=== PATIENT | male | born 1975 | race Caucasian/White ===

== ENCOUNTER 2020-02-09 09:46 | Emergency (ER) | payer MEDICAID, SELFPAY ==
[2020-02-09 09:57] VITALS: BP 122/73; PULSE 89; RESP 18; TEMP 36.3; O2SAT 100; BMI 22.1
[2020-02-09 10:01] VITALS: BP 116/74; PULSE 80; RESP 16; O2SAT 99
--- NOTE | 2020-02-09 10:13 | PC.NURSE ---
Pt stoma is red and moist, no drainage noted upon cleaning. Pt has some redness to the right lateral abdomen from adhesive from previous wafer. Pt skin cleansed with soap and water per pt preference. Pt declined skin prep prior to wafer application. 45mm ostomy kit used on pt. Pt tolerated well.
--- NOTE | 2020-02-09 10:26 | PC.NURSE ---
Pt sent with second 45mm ostomy kit d/t no supplies at the skilled nursing. Pt also sent with a tube of ostomy paste.
[2020-02-09 10:43] VITALS: BP 104/76; PULSE 70; RESP 15
--- NOTE | 2020-02-09 17:47 | W.ED.GENADLT ---
HPI - General Adult General: Chief complaint: General Medical Stated complaint: Needs colostomy bag Time Seen by Provider: 02/09/20 10:09 History of Present Illness: HPI narrative: 44-year-old male who is incarcerated in [facility]. He is originally from [place] is a history of ulcerative colitis and has a colostomy. He had a refill on his colostomy care supplies but they are in [place] and he does not have access to them he is needing a refill of medications he had a little irritation around the skin of the stoma from leakage but otherwise has been doing well been using the same colostomy bag for several days. Onset (ago): day(s) Location: abdomen Relieving factors: none Exacerbating factors: none Associated symptoms: Deny chest pain, confusion, cough, diaphoresis, decreased appetite, dyspnea, fevers/chills, headache(s), malaise, nausea, rash, palpitations, seizures, short of breath, syncope, vomiting or weakness Treatments prior to arrival: none Review of Systems Const: Denies: malaise or diaphoresis ENMT: Denies: throat pain, ear or mastoid pain, nasal discharge or nasal congestion Card: Denies: chest pain, palpitations or syncope Resp: Denies: dyspnea GI: Denies: nausea or vomiting : Denies: flank pain, dysuria, urinary frequency or urinary urgency Skin/Breast: Denies: rash Neuro: Denies: headache(s) or confusion Physical Exam Const: COMMON NORMALS: no acute distress GENERAL APPEARANCE: cooperative and comfortable ORIENTATION/CONSCIOUSNESS: Yes awake, Yes oriented to person, Yes oriented to place and Yes oriented to time HENMT: COMMON NORMALS: normocephalic, atraumatic and hearing grossly normal bilaterally HEAD & SCALP: normocephalic and atraumatic Resp: COMMON NORMALS: normal respiratory effort, No retractions, No use of accessory muscles and clear to auscultation bilaterally AUSCULTATION: clear to auscultation bilaterally Cardio: COMMON NORMALS: regular rate, regular rhythm and No murmurs present (Cardio) RATE: regular rate RHYTHM: regular rhythm GI: COMMON NORMALS: Soft to palpation and No hepatosplenomegaly present AUSCULTATION: Yes normoactive bowel sounds PALPATION: Yes Soft to palpation, No Tenderness to palpation present (GI), No Guarding due to palpation present (GI) and Yes No hepatosplenomegaly present Extremity: COMMON NORMALS: normal to inspection, capillary refill normal, no clubbing, cyanosis or edema, no calf tenderness and no pedal edema Neuro: SENSORIUM/ORIENTATION: Yes oriented to person, Yes oriented to place and Yes oriented to time Skin: COMMON NORMALS: no rashes or lesions noted GENERAL SKIN EXAM: no rashes or lesions noted Course Vital Signs: Vital signs: Vital Signs Temperature 97.3 F L 02/09/20 09:57 Pulse Rate 70 02/09/20 10:43 Respiratory Rate 15 02/09/20 10:43 Blood Pressure 104/76 02/09/20 10:43 Pulse Oximetry 99 02/09/20 10:01 MDM - General Adult MDM Narrative: Medical decision making narrative: Prescription given for colostomy supplies that he usually uses encouraged him to have [facility] [place] to colostomy supplies he got previously to him down here. Discharge Plan Discharge Patient Disposition: Home Clinical Impression: Colostomy care, Ulcerative colitis Condition: Stable Discharge Orders: Discharge Order (Routine); Ordered 02/09/20 Ordered By: Agustin Craft Discharge Date/Time: 02/09/20 10:44 Coding Level of Care Code ED Poultry Scalder for Edna Busby
== END 2020-02-09 10:44 | disposition home or self-care (01) ==
PROVIDERS: Emergency Provider Family Medicine
DX: Z43.3 Encounter for attention to colostomy (principal); K51.90 Ulcerative colitis, unspecified, without complications
CPT/HCPCS: 12345; 99282

== ENCOUNTER 2020-03-15 14:11 | Emergency (ER) | payer MEDICAID, SELFPAY ==
[2020-03-15 14:15] VITALS: BP 126/66; PULSE 129; RESP 18; TEMP 36.4; O2SAT 96; BMI 23.6
--- NOTE | 2020-03-15 14:40 | CT_ITS ---
WS: [id number] CT ABDOMEN AND PELVIS WITH CONTRAST HISTORY: Abdominal pain. TECHNIQUE: Imaging performed of the abdomen and pelvis with IV contrast. Single phase imaging of the abdomen. Coronal and sagittal reformats are submitted. All CT scans at [facility] use at least one of these dose optimization techniques: automated exposure control; mA and/or kV adjustment per patient size (includes targeted exams where dose is matched to clinical indication); or iterativ e reconstruction. IV CONTRAST: Omnipaque 300; 95 mL IV. Oral contrast: No DLP: 318.93 mGy.cm COMPARISON: None available. Lower thorax: Minimal dependent changes at the RIGHT lung base. Heart is normal size. Small hiatal he rnia. Liver/biliary system: Normal size with no intrahepatic dilatation. Gallbladder: Normal. No gallstones or wall thickening. No pericholecystic fluid. Pancreas: Normal. Spleen: Normal. Adrenal glands: Normal. Right kidney: RIGHT kidney is anteriorly rotated. No renal obstruction. Left kidney: Normal. Aorta: Normal. Lymphadenopathy: None. Free fluid: None. GI tract: Status post partial colectomy. There is fluid distending the rectum. No adjacent inflammati on. No GI tract obstruction. There is a RIGHT lower quadrant ostomy site. No obstruction or small bow el wall thickening. Abdominal wall: Unremarkable abdominal wall. No hernia. Pelvis: Normal. Bones: Unremarkable. CT/CT abdomen pelvis w con* [id number] IMPRESSION: 1. RIGHT lower quadrant ostomy site with no obstruction. No significant wall t hickening and no ascites. 2. Partial colectomy. 3. Anteriorly rotated RIGHT kidney.
--- NOTE | 2020-03-15 14:40 | XR_ITS ---
WS: [id number] PORTABLE CHEST HISTORY: dyspnea/cough COMPARISON: None available. Lungs are clear and well expanded. No pleural effusion or pneumothorax. Cardiac size: Normal. Mediastinum/Aorta: Normal mediastinum. No osseous abnormality seen. XR/XR chest 1V portable [id number] IMPRESSION: Unremarkable portable chest.
--- NOTE | 2020-03-15 14:41 | W.ED.ABDPA2 ---
HPI - Abdominal Pain General: Chief Complaint: Abdominal Pain Stated Complaint: COLITIS FLARE/HAS COLOSTOMY BAG Time Seen by Provider: 03/15/20 14:23 History of Present Illness: HPI narrative: 44-year-old male comes coming abdominal pain began after he ate earlier to today. Patient is incarcerated local [facility] he had eaten and sat down on his bunk began to get abdominal pain and discomfort He sat down in his bunk and tried to rest it got progressively worse she has reporting significant rectal pain and fullness he is not had any rectal bleeding or drainage has not noticed any blood in the colostomy pouch. His last surgery was in 2018. He denies any vomiting or fever. He has not had any dysuria urgency or frequency denies chest pain.day. MD elicited complaint: abdominal pain Pertinent past history: other (Ulcerative colitis) Onset (ago): hour(s) Location: Diffuse Severity: severe Quality: cramping Exacerbating factors: eating Relieving factors: rest Associated Symptoms: Reports bloating, GI cramping, nausea and poor appetite; Denies change in stool character, chills, coffee ground emesis, constipation, diarrhea, dyspepsia, dysuria, excessive flatus, fever(s), heartburn, hematochezia, hematuria, hematemesis, fecal incontinence, loose stools, melena, syncope and vomiting Review of Systems Const: Denies: fever(s) or chills ENMT: Denies: throat pain, ear or mastoid pain, nasal discharge or nasal congestion Card: Denies: syncope Resp: Denies: dyspnea, productive cough or non-productive cough GI: Reports: nausea, bloating and GI cramping; Denies: vomiting, hematemesis, coffee ground emesis, heartburn, diarrhea, constipation, excessive flatus, fecal incontinence, change in stool character, hematochezia or melena : Denies: dysuria or hematuria Skin/Breast: Denies: rash or pruritus PFSH ED PFSH: Medical History Ulcerative colitis Surgical History Colostomy status History of laparotomy Physical Exam Const: COMMON NORMALS: no acute distress GENERAL APPEARANCE: cooperative and comfortable ORIENTATION/CONSCIOUSNESS: Yes awake, Yes oriented to person, Yes oriented to place and Yes oriented to time HENMT: COMMON NORMALS: normocephalic, atraumatic and hearing grossly normal bilaterally HEAD & SCALP: normocephalic and atraumatic Neck/C-Spine: COMMON NORMALS: no JVD Resp: COMMON NORMALS: normal respiratory effort, No retractions, No use of accessory muscles and clear to auscultation bilaterally AUSCULTATION: clear to auscultation bilaterally Cardio: COMMON NORMALS: no JVD, regular rate, regular rhythm and No murmurs present (Cardio) RATE: regular rate RHYTHM: regular rhythm GI: COMMON NORMALS: Soft to palpation and No hepatosplenomegaly present AUSCULTATION: Yes normoactive bowel sounds PALPATION: Yes Soft to palpation, No Tenderness to palpation present (GI), No Guarding due to palpation present (GI) and Yes No hepatosplenomegaly present Extremity: COMMON NORMALS: normal to inspection, capillary refill normal, no clubbing, cyanosis or edema, no calf tenderness and no pedal edema Neuro: SENSORIUM/ORIENTATION: Yes oriented to person, Yes oriented to place and Yes oriented to time Skin: COMMON NORMALS: no rashes or lesions noted GENERAL SKIN EXAM: no rashes or lesions noted Course Vital Signs: Vital signs: Vital Signs Temperature 97.5 F L 03/15/20 14:15 Pulse Rate 129 H 03/15/20 14:15 Respiratory Rate 18 03/15/20 14:15 Blood Pressure 126/66 03/15/20 14:15 Pulse Oximetry 96 03/15/20 14:15 MDM - Abdominal Pain MDM Narrative: Medical decision making narrative: Reviewed the CT results with Dr. Dyer. No significant findings made he is feeling better after the fluids. Laboratories are largely unremarkable. May be having a little flareup of his ulcerative colitis he does have some fluid in the rectal pouch. He is scheduled to have his colostomy reversed soon. We will go ahead and discharge him will discharge on a prednisone Dosepak Zofran clear good diet for 24 to 48 hours if is worsening or change symptoms return otherwise follow-up with GI as previously scheduled. Lab Data: Labs: Lab Results 03/15/20 03/15/20 03/15/20 Range/Units 15:25 15:25 15:25 WBC 8.8 (4.0-10.0) 10^3/ uL RBC 5.37 H (4.1-5.3) 10^6/u L Hgb 14.9 (11.7-16.6) g/dL Hct 46.1 (42.0-52.0) % MCV 85.8 (80-94) fL MCH 27.7 L (28.0-34.0) pg MCHC 32.3 (30.0-36.0) g/dL RDW 13.2 (12.1-15.1) % Plt Count 378 (130-400) 10^3/c mm MPV 9.7 (7.4-10.4) fL Neut % (Auto) 64.0 % Lymph % (Auto) 16.6 % [place] % (Auto) 7.8 % Eos % (Auto) 8.7 % Baso % (Auto) 1.0 % Neut # (Auto) 5.64 (1.8-7.7) 10^3/u L Lymph # (Auto) 1.5 (0.8-4.8) 10^3/u L [place] # (Auto) 0.7 (0.2-0.9) 10^3/u L Eos # (Auto) 0.8 (0.0-0.8) 10^3/u L Baso # (Auto) 0.1 (0.0-0.1) 10^3/u L Nucleated RBC % (a uto) 0 % Nucleated RBCs # 0.0 /100WBC Sodium 144 (136-145) mmol/L Potassium 4.4 (3.5-5.1) mmol/L Chloride 107 (98-107) mmol/L Carbon Dioxide 26 (22-29) mmol/L Anion Gap 15.4 (5-19) BUN 18 (6-20) mg/dL Creatinine 0.9 (0.7-1.2) mg/dL GFR Calculation 92.5 (90-130) mL/min Glucose 117 H (65-115) mg/dL Calculated Osmolal ity 301 H (285-295) mOsm/k g Lactic Acid 1.5 (0.5-2.2) mmol/L Calcium 9.9 (8.5-10.5) mg/dL Total Bilirubin 0.3 (0.15-1.2) mg/dL AST 27 (0-40) U/L ALT 32 (0-41) U/L Alkaline Phosphata se 132 H (40-130) IU/L Total Protein 7.6 (6.6-8.7) g/dL Albumin 4.5 (3.5-5.2) g/dL Globulin 3.1 (1.3-4.6) g/dL Urine Color (Yellow) Urine Appearance (CLEAR) Urine pH (5-7) Ur Specific Gravit y (1.005-1.030) Urine Protein (Negative) Urine Glucose (UA) (Normal) Urine Ketones (Negative) Urine Blood (Negative) Urine Nitrate (Negative) Urine Bilirubin (Negative) Urine Urobilinogen (Negative) mg/dL Ur Leukocyte Gely ase (Negative) Urine RBC (0-2) /hpf Urine WBC (0-5) /hpf Ur Squamous Epith Cells (0-5) /hpf Amorphous Sediment Urine Bacteria (NONE) /hpf Hyaline Casts /lpf Urine Mucus /hpf 03/15/20 Range/Units 16:07 WBC (4.0-10.0) 10^3/ uL RBC (4.1-5.3) 10^6/u L Hgb (11.7-16.6) g/dL Hct (42.0-52.0) % MCV (80-94) fL MCH (28.0-34.0) pg MCHC (30.0-36.0) g/dL RDW (12.1-15.1) % Plt Count (130-400) 10^3/c mm MPV (7.4-10.4) fL Neut % (Auto) % Lymph % (Auto) % [place] % (Auto) % Eos % (Auto) % Baso % (Auto) % Neut # (Auto) (1.8-7.7) 10^3/u L Lymph # (Auto) (0.8-4.8) 10^3/u L [place] # (Auto) (0.2-0.9) 10^3/u L Eos # (Auto) (0.0-0.8) 10^3/u L Baso # (Auto) (0.0-0.1) 10^3/u L Nucleated RBC % (a uto) % Nucleated RBCs # /100WBC Sodium (136-145) mmol/L Potassium (3.5-5.1) mmol/L Chloride (98-107) mmol/L Carbon Dioxide (22-29) mmol/L Anion Gap (5-19) BUN (6-20) mg/dL Creatinine (0.7-1.2) mg/dL GFR Calculation (90-130) mL/min Glucose (65-115) mg/dL Calculated Osmolal ity (285-295) mOsm/k g Lactic Acid (0.5-2.2) mmol/L Calcium (8.5-10.5) mg/dL Total Bilirubin (0.15-1.2) mg/dL AST (0-40) U/L ALT (0-41) U/L Alkaline Phosphata se (40-130) IU/L Total Protein (6.6-8.7) g/dL Albumin (3.5-5.2) g/dL Globulin (1.3-4.6) g/dL Urine Color Yellow (Yellow) Urine Appearance Clear (CLEAR) Urine pH 5 (5-7) Ur Specific Gravit y 1.020 (1.005-1.030) Urine Protein Neg (Negative) Urine Glucose (UA) Norm (Normal) Urine Ketones Negative (Negative) Urine Blood 2+ H (Negative) Urine Nitrate Negative (Negative) Urine Bilirubin Neg (Negative) Urine Urobilinogen Norm (Negative) mg/dL Ur Leukocyte Gely ase Negative (Negative) Urine RBC Rare (0-2) /hpf Urine WBC Rare (0-5) /hpf Ur Squamous Epith Cells None (0-5) /hpf Amorphous Sediment Not Reportable Urine Bacteria Trace (NONE) /hpf Hyaline Casts 0-4 H /lpf Urine Mucus Trace /hpf Discharge Plan Discharge Patient Disposition: Home Clinical Impression: Ulcerative colitis, Colostomy status Condition: Stable Prescriptions: New Zofran 4 mg tablet 4 mg PO Q6H PRN (Reason: nausea and vomiting) Qty: 20 RF: 0 Medrol (Gerardo) 4 mg tablets,dose pack See Rx Instructions .ROUTE .COMPLEX Qty: 21 RF: 0 Discharge Orders: Discharge ED (Routine); Ordered 03/15/20 Ordered By: Agustin Craft Referrals: Sean Flores MD [Primary Care Provider] - Discharge Diet: Clear Liquid Discharge Activity: Increase activity as tolerated Activity Restrictions/Additional Instructions: Clear liquid diet for 24 to 48 hours and advance as tolerated. Coding Level of Care Code ED Legal Executive for Chg Fwd Exam Comprehensive
[2020-03-15 15:34] LABS: Basophils # 0.1 10^3/uL (0.0-0.1); Eosinophils # 0.8 10^3/uL (0.0-0.8); Eosinophils % 8.7 %; Hematocrit 46.1 % (42.0-52.0); Hemoglobin 14.9 g/dL (11.7-16.6); Lymphocytes # 1.5 10^3/uL (0.8-4.8); Lymphocytes % 16.6 %; Mean Corpuscular HGB Conc 32.3 g/dL (30.0-36.0); Mean Corpuscular Hemoglobin 27.7 pg (28.0-34.0); Mean Corpuscular Volume 85.8 fL (80-94); Mean Platelet Volume 9.7 fL (7.4-10.4); Monocytes # 0.7 10^3/uL (0.2-0.9); Monocytes % 7.8 %; Neutrophils # 5.64 10^3/uL (1.8-7.7); Nucleated Red Blood Cells % 0 %; Platelet Count 378 10^3/cmm (130-400); Red Blood Count 5.37 10^6/uL (4.1-5.3); Red Cell Distribution Width 13.2 % (12.1-15.1); White Blood Count 8.8 10^3/uL (4.0-10.0)
[2020-03-15 15:50] LABS: Lactic Sepsis W/Reflex 1.5 mmol/L (0.5-2.2)
[2020-03-15 15:51] LABS: Alanine Aminotransferase 32 U/L (0-41); Albumin Level 4.5 g/dL (3.5-5.2); Alkaline Phosphatase 132 IU/L (40-130); Anion Gap 15.4 (5-19); Aspartate Amino Transferase 27 U/L (0-40); Blood Urea Nitrogen 18 mg/dL (6-20); Calcium 9.9 mg/dL (8.5-10.5); Carbon Dioxide 26 mmol/L (22-29); Chloride 107 mmol/L (98-107); Globulin 3.1 g/dL (1.3-4.6); Glomerular Filtration Rate 92.5 mL/min (90-130); Glucose 117 mg/dL (65-115); Osmolality Calculated 301 mOsm/kg (285-295); Potassium 4.4 mmol/L (3.5-5.1); Sodium 144 mmol/L (136-145); Total Bilirubin 0.3 mg/dL (0.15-1.2); Total Protein 7.6 g/dL (6.6-8.7)
[2020-03-15] MEDS: sodium chloride 0.9% 1,000 ML 999 ML IV (16:12)
[2020-03-15] MEDS: ketorolac 30 mg/mL INJ IVP (16:15)
[2020-03-15] MEDS: ondansetron 2 mg/ML SDV 2 mL 4 MG IVP (16:15)
[2020-03-15 16:43] LABS: Add Urine Microscopic? YES; Bilirubin Urine Neg (Negative); Blood Urine 2+ (Negative); Glucose Urine UA Norm (Normal); Ketones Urine Negative (Negative); Leukocyte Esterase Urine Negative (Negative); Nitrate Urine Negative (Negative); Protein Urine Neg (Negative); Urine Appearance Clear (CLEAR); Urine Color Yellow (Yellow); Urobilinogen Urine Norm (Negative); pH Urine 5 (5-7)
[2020-03-15 16:54] LABS: Add Urine Culture? No; Bacteria Urine TRACE /hpf; Hyaline Casts Urine 0-4 /lpf; Mucus Urine TRACE /hpf; RBC Urine RARE /hpf (0-2); WBC Urine RARE /hpf (0-5)
[2020-03-15 17:35] VITALS: BP 128/70; PULSE 101; RESP 18; O2SAT 96
== END 2020-03-15 17:36 | disposition home or self-care (01) ==
PROVIDERS: Emergency Provider Family Medicine; PCP Surgery
DX: K51.90 Ulcerative colitis, unspecified, without complications (principal); Z93.3 Colostomy status
CPT/HCPCS: 12345; 71045; 74177; 80053; 81001; 83605; 85025; 96361; 96374; 96375; 99282; 99283; J1885; J2405; J7030

== ENCOUNTER 2023-01-29 16:56 | Emergency (ER) | payer MEDICAID, SELFPAY ==
[2023-01-29 17:10] VITALS: BP 102/66; PULSE 54; RESP 15; TEMP 36.7; O2SAT 99; BMI 22.1
--- NOTE | 2023-01-29 17:12 | ED_ITS ---
HPI - General Adult General: Chief complaint: General Medical Stated complaint: colostomy bag coming off Time Seen by Provider: 01/29/23 17:11 History of Present Illness: 47-year-old male patient comes in today for colostomy care. Patient has ulcerative colitis which required part of his bowel to be removed and placing him in a colostomy. Patient is incarcerated at this time and his adhesive is releasing from his abdominal wall causing the colostomy bag to leak. Patient appears nontoxic. Patient appears in no acute distress. Patient denies any other concerns. Associated symptoms: Deny chest pain, dyspnea, nausea or vomiting Review of Systems General: Reports: 10 or more systems reviewed and unremarkable except in HPI and below Const: Denies: fever(s) Card: Denies: chest pain Resp: Denies: dyspnea GI: Denies: nausea, vomiting, diarrhea or constipation : Denies: difficulty urinating [facility] ED PFSH: Medical History Ulcerative colitis Surgical History Colostomy status History of laparotomy Physical Exam Const: COMMON NORMALS: alert HENMT: COMMON NORMALS: normocephalic HEAD & SCALP: normocephalic Neck/C-Spine: COMMON NORMALS: full ROM Resp: COMMON NORMALS: normal respiratory effort Cardio: COMMON NORMALS: regular rate RATE: regular rate GI: COMMON NORMALS: Soft to palpation AUSCULTATION: Yes normoactive bowel sounds PALPATION: Yes Soft to palpation and Yes Other GI palpation findings present (Colostomy bag noted, leaking at 5 o'clock position) Extremity: COMMON NORMALS: normal to inspection Neuro: SENSORIUM/ORIENTATION: Yes alert Skin: COMMON NORMALS: turgor normal GENERAL SKIN EXAM: turgor normal Course Vital Signs: Vital signs: Vital Signs Temperature 98.0 F 01/29/23 17:10 Pulse Rate 54 L 01/29/23 17:10 Respiratory Rate 15 01/29/23 17:10 Blood Pressure 102/66 01/29/23 17:10 Pulse Oximetry 99 01/29/23 17:10 Oxygen Delivery Me thod Room Air 01/29/23 17:10 MDM - General Adult Medical Decision Making Patient comes in for a colostomy bag that has started to detach from the abdominal wall. Patient appears nontoxic. Examination of the site indicates no redness or inflammation. Vital signs are normal. Differential diagnosis includes but not limited to exacerbation of ulcerative colitis, blood in stool, anemia, febrile illness, colostomy care. No signs or symptoms were noted of severe illness or injury. Colostomy care was provided with replacement of the back and adhesive. Patient tolerated well. No radiology studies performed this visit Discharge Plan Discharge Patient Disposition: Home Clinical Impression: Colostomy care, Colostomy in place Ulcerative colitis Qualifiers: Ulcerative colitis location: unspecified ulcerative colitis location Digestive disease complication type: other complication Qualified Code(s): K51.918 - Ulcerative colitis, unspecified with other complication Condition: Stable Prescriptions: No Action Zofran 4 mg tablet 4 mg PO Q6H PRN (Reason: nausea and vomiting) Qty: 20 0RF Medrol (Gerardo) 4 mg tablets,dose pack See Rx Instructions .ROUTE .COMPLEX Qty: 21 0RF Rx Instructions: orally per package directions Discharge Orders: Discharge ED (Routine); Ordered 01/29/23 Ordered By: Gerardo Royal Referrals: OUT OF AREA PROVIDERS, [Primary Care Provider] - Patient Instructions: Colostomy Care (ED) Activity Restrictions/Additional Instructions: Follow-up with primary care for further management and treatment. Return to ED for new concerns. Coding Level of Care Code ED Solar Electric/Photovoltaic Installer for Edna Busby
--- NOTE | 2023-01-29 19:22 | PC.NURSE ---
this nurse sent pt home with colostomy supplies. Nate New Image Two-Piece Ostomy System. [id number]
[2023-01-29 19:23] VITALS: BP 102/66; PULSE 54; RESP 15; TEMP 36.7; O2SAT 99
== END 2023-01-29 19:25 | disposition home or self-care (01) ==
PROVIDERS: Emergency Provider Nurse Practitioner Family
DX: Z43.3 Encounter for attention to colostomy (principal); Z46.9 Encounter for fitting and adjustment of unspecified device; K51.918 Ulcerative colitis, unspecified with other complication
CPT/HCPCS: 99282